=== PATIENT | male | born 1975 | race Two or more races ===

== ENCOUNTER 2025-01-24 11:15 | Emergency (ER) | payer OTHER ==
[~2025-01-24] VITALS: Ht 175.3 cm; Wt 104.3 kg
[~2025-01-24 11:15] MED LIST: IBUPROFEN800 MG PO; MEDROL4 MG PO; ORPH100T PO
[2025-01-24] MEDS ORDERED: COZAAR25 MG PO (11:21)
[2025-01-24] MEDS ORDERED: AMLODIPINE-OLM1 EAC2 PO (11:22)
[2025-01-24] MEDS ORDERED: JENTADUETO XR1 EACH PO (11:24)
[2025-01-24 12:41] LABS: HEMATOCRIT 41.6 % (39.0-48.0); HEMOGLOBIN 14.5 g/dL (13-16.00); MEAN CELL VOLUME 89.7 fL (80.0-100.00); MEAN CORPUSCULAR HEMOGLOBIN 31.2 pg (27.00-32.0); MEAN CORPUSCULAR HGB CONC 34.8 g/dl (32.0-36.0); PLATELET COUNT 266 K/uL (150-450); RED BLOOD COUNT 4.64 M/uL (4.00-6.00); RED CELL DISTRIBUTION WIDTH 13.1 % (11.5-14.5)
[2025-01-24 13:30] LABS: URINE APPEARANCE Clear; URINE BILIRRUBIN Negative (NEGATIVE); URINE BLOOD Negative; URINE COLOR Yellow; URINE KETONE Trace (NEGATIVE); URINE LEUKOCYTE Negative; URINE NITRATE Negative; URINE PROTEIN 30 (NEGATIVE); URINE UROBILINOGEN 0.2 E.U./dl
[2025-01-24 13:37] LABS: URINE BACTERIA 61.1 uL (0.0-1933); URINE CAST 3.24 uL (0.0-1.40); URINE EPITHELIAL CELLS 7.9 uL (0.0-38.8); URINE RBC 3.2 uL (0.0-20.8); URINE WBC 8.2 uL (0.0-23.2)
[2025-01-24 13:50] LABS: URINE GLUCOSE 250 MG/DL (NEGATIVE)
[2025-01-24 14:13] LABS: ALBUMIN 3.9 gm/dL (3.4-5.0); BILIRUBIN TOTAL 0.5 mg/dL (0.3-1.2); CALCIUM 9.4 mg/dL (8.5-10.1); CREATININE SERUM 1.02 mg/dL (0.70-1.30); GFR 78.28; GLOBULINA 3.5 G/DL (2.4-3.5); POTASSIUM 4.18 mEq/L (3.5-5.1); TOTAL PROTEIN 7.4 gm/dL (6.4-8.2)
[2025-01-24] MEDS ORDERED: 0.9 % SODIUM CHLORIDE 1,000 ML IV SCH (14:45)
== END 2025-01-24 17:02 | disposition home or self-care (01) ==
LOC: ER 11:15
PROVIDERS: Emergency Medicine
DX: G40.89 Other seizures (principal); I10 Essential (primary) hypertension; E11.9 Type 2 diabetes mellitus without complications; Z79.84 Long term (current) use of oral hypoglycemic drugs